=== PATIENT | male | born 1970 | race Caucasian/White ===

== ENCOUNTER 2022-05-21 18:19 | Outpatient (CLI) | payer MEDICARE, SELFPAY | END 2022-05-21 18:20 | disposition home or self-care (01) | LOC: AMB 05-28 16:00 | PROVIDERS: Visit Provider Family Medicine | DX: R06.09 Other forms of dyspnea (principal); R53.83 Other fatigue; I49.9 Cardiac arrhythmia, unspecified | CPT/HCPCS: A0425; A0427 ==

== ENCOUNTER 2022-06-08 10:04 | Outpatient (CLI) | payer MEDICARE, SELFPAY ==
[2022-06-08 11:35] LABS: INR 3.64 (0.91-1.10); Prothrombin Time 36.5 Seconds
== END 2022-06-08 10:05 | disposition home or self-care (01) ==
LOC: WOUND 10:05
PROVIDERS: Visit Provider Nurse Practitioner Family
DX: E11.621 Type 2 diabetes mellitus with foot ulcer (principal); L97.525 Non-pressure chronic ulcer of other part of left foot with muscle involvement without evidence of necrosis; Z79.01 Long term (current) use of anticoagulants; Z79.4 Long term (current) use of insulin
CPT/HCPCS: 11042; 36415; 85610

== ENCOUNTER 2022-06-22 10:12 | Outpatient (CLI) | payer MEDICARE, SELFPAY | END 2022-06-22 10:13 | disposition home or self-care (01) | PROVIDERS: Visit Provider Nurse Practitioner Family | DX: E11.621 Type 2 diabetes mellitus with foot ulcer (principal); L97.525 Non-pressure chronic ulcer of other part of left foot with muscle involvement without evidence of necrosis; Z79.4 Long term (current) use of insulin | CPT/HCPCS: 11042 ==

== ENCOUNTER 2022-07-13 10:14 | Outpatient (CLI) | payer MEDICARE, SELFPAY | END 2022-07-13 10:15 | disposition home or self-care (01) | LOC: WOUND 10:14 | PROVIDERS: Visit Provider Nurse Practitioner Family | DX: E11.621 Type 2 diabetes mellitus with foot ulcer (principal); L97.525 Non-pressure chronic ulcer of other part of left foot with muscle involvement without evidence of necrosis; I89.0 Lymphedema, not elsewhere classified; Z79.4 Long term (current) use of insulin | CPT/HCPCS: 97597 ==

== ENCOUNTER 2022-07-19 09:46 | Emergency (ER) | payer MEDICARE, SELFPAY ==
[2022-07-19 09:57] VITALS: BP 101/63; PULSE 93; RESP 22; TEMP 36.8; O2SAT 98; BMI 39.0
[2022-07-19 10:00] VITALS: O2SAT 98
[2022-07-19] MEDS: IPRAT-ALBUT 0.5-2.5 MG/3 ML NEB 1 NEB IH ×2 (10:24→10:30)
--- NOTE | 2022-07-19 10:28 | ED.NURSE ---
Pt called nurse in stating he was having an exacerbation of his COPD and requested his O2 be increased and a neb. Sats at 98% on [address] Mckeon, no not increase O2. Neb ordered and started per eMAR. RT requested to assess pt.
[2022-07-19 10:34] LABS: Basophils Percent Auto 0.1 % (0.0-3.0); Hematocrit 38.3 % (37.0-53.0); Hemoglobin* 12.3 gm/dL (13.5-17.5); Immature Granulocytes Abs Auto 0.49 K/uL (0.00-0.30); Lymphocytes Percent Auto 5.7 % (20-44); Mean Corpuscular HGB Conc 32 gm/dL (32-36); Mean Corpuscular Hemoglobin 29 pg (26-34); Mean Corpuscular Volume 90 fL (80-100); Monocytes Percent Auto 3.3 % (0.0-11.0); Neutrophils Percent Auto 87.3 % (42.0-72.0); Platelet Count* 373 K/uL (140-440); RDW Coefficient of Variation % 17.7 % (11.5-15.5); Red Blood Count 4.24 m/uL (4.30-5.90); White Blood Count* 13.63 K/uL (4.50-11.00)
[2022-07-19 10:37] LABS: Slide Review Reflex No
--- NOTE | 2022-07-19 10:56 | ED.GENADULT ---
HPI - General Adult General Chief complaint: Unspecified Complaint, Adult Stated complaint: bleeding since last night on Warfarin Time Seen by Provider: 07/19/22 10:04 Source: patient Mode of arrival: ambulatory Limitations: no limitations History of Present Illness HPI narrative: 52-year-old male coming in today concerned about bleeding on his arms. States he went to bed in his normal state of health woke up this morning and is forearms were covered in bruises, blood blisters and were bleeding everywhere. He states he woke up in his bed was covered in blood. He does not feel dizzy or lightheaded. He does have COPD and has chronic shortness of breath, this is unchanged. He is on Coumadin and states that his INR is very difficult to control and has been as high as over 11. He is going to be switched to Xarelto but not until the new year secondary to insurance issues. He denies any blood in his urine, no blood in his stool. He is not nauseated has not been vomiting. He denies any bleeding in the inside of his mouth. He is requesting a DuoNeb while he is in the ED today, he generally uses the frequently at home for his COPD. Related Data Home Medications Medication Instructions Recorded Confirmed atorvastatin 40 mg tablet 40 mg PO HS 07/19/22 07/19/22 budesonide 0.5 mg/2 mL suspension 0.5 mg inhalation BID 07/19/22 07/19/22 for nebulization (Pulmicort) bumetanide 1 mg tablet 3 mg PO BID 07/19/22 07/19/22 diltiazem HCl 120 mg 120 mg PO HS 07/19/22 07/19/22 capsule,extended release 24 hr Allergies Allergy/AdvReac Type Severity Reaction Status Date / Time shellfish derived Allergy Verified 07/19/22 10:02 Review of Systems Status of ROS: Reports: 10 or more systems reviewed and unremarkable except as noted in History and below [facility] Medical History halfway current use of anticoagulant Social History Smoking Status: Former smoker What tobacco products do you use: cigarettes Smoking quit date/years: >15 years ago Do you use any of these nicotine containing products: None Second hand tobacco smoke exposure: No How often do you have a drink containing alcohol: never AUDIT-C Alcohol total score: 0 Non-prescribed substance use: denies use Exam Narrative: Exam Narrative: Overweight, well-developed patient in no acute distress. Alert and oriented. Answers questions appropriately. Mood and affect are appropriate. Thoughts are goal oriented and rational. No tangential or magical thinking noted. Patient speaks in full sentences without needing to catch his breath. HEENT: Normocephalic atraumatic. Pupils are equally round reactive to light. Extraocular muscles are intact. Conjunctivae are moist without any icterus noted. Moist mucous membranes. Posterior pharynx is normal. Neck is soft without any lymphadenopathy or thyromegaly. No bleeding noted in the inside of the mouth. Cardiovascular: Heart is regular rate and rhythm S1 and S2 are present . Lungs: Mild bilateral wheezing, otherwise clear lungs with good air movement. Extremities: Bilateral lower extremities are without ecchymosis. He has trace edema bilaterally. His upper arms have bruising from the elbows down with some hemorrhagic blisters. A couple of them have broken and are bruising. Const: Vital Signs, click to edit/add: Vital Signs - 24 hr 07/19/22 09:57 07/19/22 11:03 Temperature 98.3 F Pulse Rate [Pulse Oximeter] 93 87 Respiratory Rate 22 20 Blood Pressure [Le ft Upper Arm] 101/63 115/66 Pulse Oximetry 98 97 Oxygen Delivery Me thod Nasal Cannula Nasal Cannula Course Course Hospital Course: CBC unremarkable, INR elevated. Discussed results with the patient and he stated that vitamin K was necessary. Therefore he was given a dose 5 mg orally. Vital Signs Vital signs: Initial Vital Signs Temperature 98.3 F 07/19/22 09:57 Temperature Source Temporal Artery Scan 07/19/22 09:57 Pulse Rate 93 07/19/22 09:57 Respiratory Rate 22 07/19/22 09:57 Blood Pressure 101/63 07/19/22 09:57 Blood Pressure Mean 75 07/19/22 09:57 Blood Pressure Position Sitting 07/19/22 09:57 Pulse Oximetry 98 07/19/22 09:57 Oxygen Delivery Method 07/19/22 09:57 Vital Signs Temperature 98.3 F 07/19/22 09:57 Pulse Rate 93 07/19/22 09:57 Respiratory Rate 22 07/19/22 09:57 Blood Pressure 101/63 09/04/22 09:57 Pulse Oximetry 98 07/19/22 09:57 Oxygen Delivery Method 07/19/22 09:57 Temperature 98.3 F 07/19/22 09:57 Pulse Rate 87 07/19/22 11:03 Respiratory Rate 20 07/19/22 11:03 Blood Pressure 115/66 07/19/22 11:03 Pulse Oximetry 97 07/19/22 11:03 Oxygen Delivery Method 07/19/22 11:03 Medical Decision Making MDM Narrative Medical decision making narrative: 52-year-old male on chronic anticoagulation with bleeding from the skin on the forearms. Elevated INR. Patient given vitamin K in the ED today. He held his Coumadin this morning and will continue to hold it again tomorrow. He has a follow-up scheduled on Wednesday. He understands the risk of clot with a sub therapeutic INR. States that he has Lovenox injections at home that he has had to use in the past. He had no other concerns. Medical Records Medical records reviewed: Yes I reviewed the patient's medical records Lab Data Lab results reviewed: Yes I reviewed the patient's lab results Labs: Lab Results 07/19/22 07/19/22 Range/Units 10:26 10:26 WBC 13.63 H (4.50-11.00) K/uL RBC 4.24 L (4.30-5.90) m/uL Hgb 12.3 L (13.5-17.5) gm/dL Hct 38.3 (37.0-53.0) % MCV 90 (80-100) fL MCH 29 (26-34) pg MCHC 32 (32-36) gm/dL RDW Coeff of Jeanmarie 17.7 H (11.5-15.5) % Plt Count 373 (140-440) K/uL Neut % (Auto) 87.3 H (42.0-72.0) % Lymph % (Auto) 5.7 L (20-44) % [place] % (Auto) 3.3 (0.0-11.0) % Eos % (Auto) 0.0 (0.0-7.0) % Baso % (Auto) 0.1 (0.0-3.0) % Neut # (Auto) 11.90 H (1.7-7.0) K/uL Lymph # (Auto) 0.80 L (0.90-2.90) K/uL [place] # (Auto) 0.40 (0.00-0.90) K/UL Eos # (Auto) 0.00 (0.00-0.50) K/uL Baso # (Auto) 0.00 (0.00-0.30) K/uL Abs Immat Gran (auto) 0.49 H (0.00-0.30) K/uL INR 5.78 H* (0.91-1.10) Discharge Plan Discharge Clinical Impression: halfway current use of anticoagulant, Acute bleeding Additional Instructions: Hold Coumadin tomorrow. Follow up on Wednesday. Prescriptions: No Action atorvastatin 40 mg tablet 40 mg PO HS Label Comments: TAKE 1 TABLET (40 MG) BY MOUTH DAILY AT BEDTIME. INDICATIONS: HIGH AMOUNT OF FATS IN THE BLOOD budesonide [Pulmicort] 0.5 mg/2 mL suspension for nebulization 0.5 mg inhalation BID bumetanide 1 mg tablet 3 mg PO BID Label Comments: TAKE 2 TABLETS (2 MG) BY MOUTH TWO TIMES A DAY. diltiazem HCl 120 mg capsule,extended release 24hr 120 mg PO HS Label Comments: TAKE 1 CAPSULE DAILY AT BEDTIME. INDICATIONS: ATRIAL FIBRILLATION, HIGH BLOOD PRESSURE DISORDER Follow Up/Referrals: Provider,Not a Local [Primary Care Provider] - Stand Alone [facility] Info Inst[facility]
[2022-07-19 11:03] VITALS: BP 115/66; PULSE 87; RESP 20; O2SAT 97
[2022-07-19 11:11] LABS: Prothrombin Time 51.9 Seconds
[2022-07-19 11:12] LABS: INR 5.78 (0.91-1.10)
--- NOTE | 2022-07-19 11:12 | ED.NURSE ---
Critical received from lab: INR 5.78. informed.
--- NOTE | 2022-07-19 11:22 | RESP.RT ---
Pt seen in ED. 2 duonebs given back to back. Pt with improved overall aeration. BBS decreased in bases, with some expiratory wheezing. Per pt he is oxygen dependent at home, he uses oxygen anywhere from 3-15L as he decides. He uses BIPAP at home, with possible AVAPS. Pt has adjusted oxygen, while myself and nurse out of the room. He was on 3L with Spo2 of 98% when I left the room. he also states he takes 50-60mg of prednisone per day (?) He is a patient with [facility] and sees pulmonology there.
== END 2022-07-19 11:55 | disposition home or self-care (01) ==
LOC: ED 11:21
PROVIDERS: Emergency Provider Family Medicine
DX: R58 Hemorrhage, not elsewhere classified (principal); Z79.01 Long term (current) use of anticoagulants; J44.9 Chronic obstructive pulmonary disease, unspecified
CPT/HCPCS: 36415; 85025; 85610; 94640; 99284

== ENCOUNTER 2022-07-27 10:40 | Outpatient (CLI) | payer MEDICARE, SELFPAY | END 2022-07-27 10:41 | disposition home or self-care (01) | PROVIDERS: Visit Provider Nurse Practitioner Family | DX: E11.621 Type 2 diabetes mellitus with foot ulcer (principal); L97.525 Non-pressure chronic ulcer of other part of left foot with muscle involvement without evidence of necrosis; Z79.4 Long term (current) use of insulin; Z79.52 Long term (current) use of systemic steroids | CPT/HCPCS: 11043 ==

== ENCOUNTER 2022-08-06 13:55 | Outpatient (CLI) | payer MEDICARE, SELFPAY | END 2022-08-06 13:56 | disposition home or self-care (01) | LOC: WOUND 13:56 | PROVIDERS: Visit Provider Nurse Practitioner Family | DX: E11.621 Type 2 diabetes mellitus with foot ulcer (principal); L97.525 Non-pressure chronic ulcer of other part of left foot with muscle involvement without evidence of necrosis; S81.802A Unspecified open wound, left lower leg, initial encounter; W20.8XXA Other cause of strike by thrown, projected or falling object, initial encounter; Z79.4 Long term (current) use of insulin | CPT/HCPCS: 11042; 15275; Q4151 ==

== ENCOUNTER 2022-08-07 11:57 | Outpatient (CLI) | payer MEDICARE, SELFPAY | END 2022-08-07 11:58 | disposition home or self-care (01) | LOC: AMB 09-08 06:26 | PROVIDERS: Visit Provider Family Medicine | DX: R06.02 Shortness of breath (principal) | CPT/HCPCS: A0425; A0427 ==

== ENCOUNTER 2022-08-17 11:06 | Outpatient (CLI) | payer MEDICARE, SELFPAY | END 2022-08-17 11:07 | disposition home or self-care (01) | LOC: WOUND 11:06 | PROVIDERS: Visit Provider Nurse Practitioner Family | DX: E11.621 Type 2 diabetes mellitus with foot ulcer (principal); L97.525 Non-pressure chronic ulcer of other part of left foot with muscle involvement without evidence of necrosis; Z79.4 Long term (current) use of insulin | CPT/HCPCS: 11042 ==

== ENCOUNTER 2022-08-21 15:30 | Outpatient (CLI) | payer MEDICARE, SELFPAY | END 2022-08-21 15:31 | disposition home or self-care (01) | LOC: AMB 09-01 07:00 | PROVIDERS: Visit Provider Family Medicine | DX: R06.09 Other forms of dyspnea (principal); I49.9 Cardiac arrhythmia, unspecified | CPT/HCPCS: A0425; A0427 ==

== ENCOUNTER 2022-08-31 10:52 | Outpatient (CLI) | payer MEDICARE, SELFPAY | END 2022-08-31 10:53 | disposition home or self-care (01) | LOC: WOUND 10:52 | PROVIDERS: Visit Provider Nurse Practitioner Family | DX: E11.621 Type 2 diabetes mellitus with foot ulcer (principal); L97.525 Non-pressure chronic ulcer of other part of left foot with muscle involvement without evidence of necrosis; Q82.0 Hereditary lymphedema; Z79.4 Long term (current) use of insulin | CPT/HCPCS: 11042 ==

== ENCOUNTER 2022-09-14 10:59 | Outpatient (CLI) | payer MEDICARE, SELFPAY | END 2022-09-14 11:00 | disposition home or self-care (01) | LOC: WOUND 10:59 | PROVIDERS: Visit Provider Nurse Practitioner Family | DX: E11.621 Type 2 diabetes mellitus with foot ulcer (principal); L97.525 Non-pressure chronic ulcer of other part of left foot with muscle involvement without evidence of necrosis; Z79.4 Long term (current) use of insulin; I89.0 Lymphedema, not elsewhere classified | CPT/HCPCS: 11042 ==

== ENCOUNTER 2022-09-17 10:52 | Outpatient (CLI) | payer MEDICARE, SELFPAY | END 2022-09-17 10:53 | disposition home or self-care (01) | LOC: AMB 09-29 10:32 | PROVIDERS: Visit Provider Student in an Organized Health Care Education/Training Program | DX: R06.09 Other forms of dyspnea (principal) | CPT/HCPCS: A0425; A0427 ==

== ENCOUNTER 2022-10-04 10:02 | Outpatient (CLI) | payer MEDICARE, SELFPAY | END 2022-10-04 10:03 | disposition home or self-care (01) | LOC: AMB 10-21 06:48 | PROVIDERS: Visit Provider Family Medicine | DX: R06.09 Other forms of dyspnea (principal); R41.82 Altered mental status, unspecified | CPT/HCPCS: A0425; A0427 ==

== ENCOUNTER 2022-11-04 12:25 | Outpatient (CLI) | payer MEDICARE, SELFPAY | END 2022-11-04 12:26 | disposition home or self-care (01) | LOC: AMB 11-12 12:39 | PROVIDERS: Visit Provider Family Medicine | DX: R06.09 Other forms of dyspnea (principal) | CPT/HCPCS: A0425; A0427 ==

== ENCOUNTER 2022-11-20 10:34 | Outpatient (CLI) | payer MEDICARE, BC, SELFPAY | END 2022-11-20 10:35 | disposition home or self-care (01) | PROVIDERS: Visit Provider Physician Assistant Surgical | DX: E11.621 Type 2 diabetes mellitus with foot ulcer (principal); L97.525 Non-pressure chronic ulcer of other part of left foot with muscle involvement without evidence of necrosis; Z79.4 Long term (current) use of insulin; I87.312 Chronic venous hypertension (idiopathic) with ulcer of left lower extremity; L97.822 Non-pressure chronic ulcer of other part of left lower leg with fat layer exposed | CPT/HCPCS: 11042 ==

== ENCOUNTER 2022-11-25 16:21 | Outpatient (CLI) | payer MEDICARE, BC, SELFPAY | END 2022-11-25 16:22 | disposition home or self-care (01) | LOC: AMB 11-26 02:43 | PROVIDERS: Visit Provider Family Medicine | DX: I49.9 Cardiac arrhythmia, unspecified (principal); I48.91 Unspecified atrial fibrillation | CPT/HCPCS: A0425; A0427 ==

== ENCOUNTER 2022-12-04 10:22 | Outpatient (CLI) | payer MEDICARE, BC, SELFPAY | END 2022-12-04 10:23 | disposition home or self-care (01) | LOC: WOUND 10:22 | PROVIDERS: Visit Provider Physician Assistant Surgical | DX: E11.621 Type 2 diabetes mellitus with foot ulcer (principal); L97.525 Non-pressure chronic ulcer of other part of left foot with muscle involvement without evidence of necrosis; I87.313 Chronic venous hypertension (idiopathic) with ulcer of bilateral lower extremity; L97.812 Non-pressure chronic ulcer of other part of right lower leg with fat layer exposed; L97.822 Non-pressure chronic ulcer of other part of left lower leg with fat layer exposed; Z79.4 Long term (current) use of insulin | CPT/HCPCS: 11042 ==

== ENCOUNTER 2022-12-06 13:01 | Outpatient (CLI) | payer MEDICARE, BC, SELFPAY | END 2022-12-06 13:02 | disposition home or self-care (01) | LOC: AMB 12-09 10:39 | PROVIDERS: Visit Provider Family Medicine | DX: R06.02 Shortness of breath (principal) | CPT/HCPCS: A0425; A0429 ==

== ENCOUNTER 2022-12-25 11:03 | Outpatient (CLI) | payer MEDICARE, BC, SELFPAY | END 2022-12-25 11:04 | disposition home or self-care (01) | LOC: WOUND 11:03 | PROVIDERS: Visit Provider Physician Assistant Surgical | DX: E11.621 Type 2 diabetes mellitus with foot ulcer (principal); L97.525 Non-pressure chronic ulcer of other part of left foot with muscle involvement without evidence of necrosis; I87.313 Chronic venous hypertension (idiopathic) with ulcer of bilateral lower extremity; L97.822 Non-pressure chronic ulcer of other part of left lower leg with fat layer exposed; L97.812 Non-pressure chronic ulcer of other part of right lower leg with fat layer exposed; I89.0 Lymphedema, not elsewhere classified; Z79.4 Long term (current) use of insulin | CPT/HCPCS: 11042 ==

== ENCOUNTER 2023-01-01 09:53 | Outpatient (CLI) | payer MEDICARE, BC, SELFPAY | END 2023-01-01 09:54 | disposition home or self-care (01) | LOC: WOUND 09:53 | PROVIDERS: Visit Provider Physician Assistant Surgical | DX: E11.621 Type 2 diabetes mellitus with foot ulcer (principal); L97.525 Non-pressure chronic ulcer of other part of left foot with muscle involvement without evidence of necrosis; I87.313 Chronic venous hypertension (idiopathic) with ulcer of bilateral lower extremity; L97.812 Non-pressure chronic ulcer of other part of right lower leg with fat layer exposed; L97.822 Non-pressure chronic ulcer of other part of left lower leg with fat layer exposed; I89.0 Lymphedema, not elsewhere classified; Z79.4 Long term (current) use of insulin | CPT/HCPCS: 11042 ==

== ENCOUNTER 2023-01-09 12:32 | Outpatient (CLI) | payer MEDICARE, BC, SELFPAY | END 2023-01-09 12:33 | disposition home or self-care (01) | LOC: AMB 01-12 11:12 | PROVIDERS: Visit Provider Family Medicine | DX: T40.2X3A Poisoning by other opioids, assault, initial encounter (principal); Y92.049 Unspecified place in boarding-house as the place of occurrence of the external cause | CPT/HCPCS: A0425; A0427 ==

== ENCOUNTER 2023-01-22 20:11 | Outpatient (CLI) | payer MEDICARE, BC, SELFPAY | END 2023-01-22 20:12 | disposition home or self-care (01) | LOC: AMB 01-25 12:15 | PROVIDERS: Visit Provider Internal Medicine | DX: R06.02 Shortness of breath (principal) | CPT/HCPCS: A0425; A0427 ==

== ENCOUNTER 2023-08-15 18:05 | Outpatient (CLI) | payer MEDICARE, BC, SELFPAY | END 2023-08-15 18:06 | disposition home or self-care (01) | PROVIDERS: Visit Provider Student in an Organized Health Care Education/Training Program | DX: R44.1 Visual hallucinations (principal); F29 Unspecified psychosis not due to a substance or known physiological condition | CPT/HCPCS: A0425; A0427 ==

== ENCOUNTER 2023-09-04 19:22 | Outpatient (CLI) | payer MEDICARE, BC, SELFPAY | END 2023-09-04 19:23 | disposition home or self-care (01) | LOC: AMB 09-07 12:11 | PROVIDERS: Visit Provider Family Medicine | DX: R53.1 Weakness (principal) | CPT/HCPCS: A0998 ==

== ENCOUNTER 2023-09-06 10:54 | Outpatient (CLI) | payer MEDICARE, BC, SELFPAY | END 2023-09-06 10:55 | disposition home or self-care (01) | LOC: AMB 09-11 14:41 | PROVIDERS: Visit Provider Family Medicine | DX: R53.1 Weakness (principal) | CPT/HCPCS: A0425; A0427 ==

== ENCOUNTER 2023-10-01 11:18 | Outpatient (CLI) | payer MEDICARE, BC, SELFPAY | END 2023-10-01 11:19 | disposition home or self-care (01) | LOC: AMB 10-05 01:35 | PROVIDERS: Visit Provider Emergency Medicine Emergency Medical Services | DX: R06.02 Shortness of breath (principal) | CPT/HCPCS: A0425; A0427 ==